=== PATIENT | female | born 1995 | race Two or more races ===

== ENCOUNTER 2025-04-14 16:40 | Inpatient (IN) | payer OTHER, SELFPAY ==
[2025-04-14] VITALS (15 sets, daily range): BP systolic 112–145; BP diastolic 55–75; PULSE 53–91; RESP 16; TEMP 36.7–36.8; BMI 36.8
[2025-04-14 17:35] LABS: Basophils # (Auto) 0.0 Thou/mm3 (0.0-0.2); Basophils % (Auto) 0 % (0-2.5); Eosinophils # (Auto) 0.1 Thou/mm3 (0.0-0.5); Eosinophils % (Auto) 1 % (0-10); Hematocrit 39.5 % (36.0-46.0); Hemoglobin 13.3 g/dL (12.0-16.0); Immature Granulocytes Auto 0.03 Thou/mm3 (0.00-0.00); Lymphocytes # (Auto) 1.9 Thou/mm3 (1.0-4.8); Lymphocytes % (Auto) 20 % (10-50); Mean Corpuscular HGB Conc 33.7 g/dl (31.0-37.0); Mean Corpuscular Hemoglobin 29.9 pg (25.0-35.0); Mean Corpuscular Volume 89 fL (80-100); Monocytes # (Auto) 0.5 Thou/mm3 (0.0-0.8); Monocytes % (Auto) 5 % (0-12); Neutrophils # (Auto) 7.0 Thou/mm3 (1.8-7.7); Neutrophils % (Auto) 74 % (37-80); Nucleated Red Blood Cell # 0.00 Thou/mm3 (0.00-0.00); Nucleated Red Blood Cell % 0 /100 WBC (0); Platelet Count 188 Thou/mm3 (140-440); RDW Standard Deviation 42.5 fL (36.4-46.3); Red Blood Count 4.45 Miln/mm3 (4.00-5.20); White Blood Count 9.5 Thou/mm3 (3.6-11.0)
[2025-04-14 18:08] LABS: Syphilis Nonreactive (Nonreactive)
[2025-04-14 18:31] LABS: Amphetamine/Metham Scrn,Ur OB Negative (Negative); Benzoylecgonine Screen, Ur OB Negative (Negative); Opiate Screen,Urine OB Negative (Negative); THC Screen,Urine OB Negative (Negative)
--- NOTE | 2025-04-14 18:33 | PD.LDHP ---
Documentation for date of: 04/14/25 OB Labor/Induct. HPI History of Present Illness : 3 Para: 2 Term pregnancies: 0 pregnancies: 0 Living children: 2 History of Abortions: Spontaneous and Elective: 0 BURKE: 04/14/25 Gestational Age (weeks): 40 Gestational Age (days): 0 History of present illness: H and P dictated in Nuance # [id number] Labs Labs: Positive: Rubella Titre and Group Beta Strep, Negative: RPR, Hepatitis B, HIV, Chlamydia and Gonorrhea and Unknown: Herpes Type 1, Herpes Type 2 and Covid-19 Meds Home Medications and Allergies Home Medications ?Medication ?Instructions ?Recorded ?Confirmed ?Type vitamins-iron fumarate 27 1 tab PO QDAY 09/27/19 04/14/25 History mg iron-folic acid 0.8 mg tablet ( Vitamin) dextromethorphan HBr 30 mg/5 mL 30 mg PO PRN PRN Cough 07/21/22 04/14/25 History oral liquid Allergies Allergy/AdvReac Type Severity Reaction Status Date / Time No Known Allergies Allergy Verified 04/14/25 18:24 OB Exam Physical Exam Vital signs: Temp Pulse BP 98.3 F 65 128/75 04/14/25 17:36 04/14/25 18:03 04/14/25 18:03 OB Results Labs 04/14/25 17:20 Labs: Short CBC 04/14/25 Range/Units 17:20 WBC 9.5 (3.6-11.0) Thou/mm3 Hgb 13.3 (12.0-16.0) g/dL Hct 39.5 (36.0-46.0) % Plt Count 188 (140-440) Thou/mm3
[2025-04-14] MEDS: RINGERS LACTATED 1000 ML 1,000 ML 100 ML IV (20:20)
[2025-04-15] VITALS (97 sets, daily range): BP systolic 94–143; BP diastolic 56–94; PULSE 53–81; RESP 14–20; TEMP 36.6–36.8; O2SAT 97–100
[2025-04-15] MEDS: RINGERS LACTATED 1000 ML 1,000 ML 100 ML IV ×4 (02:43→22:24)
--- NOTE | 2025-04-15 06:21 | PD.LDPN ---
Documentation for date of: 04/15/25 OB Labor Progress Note Pelvic Exam Dilation (cm): 2 Effacement (%): 50 station: -3 Amniotic membrane status: Intact Contractions Monitor mode: External Contraction frequency: 5 Contraction intensity: Mild Status status: Category l Assessment and Plan Comments: Cytotec cervical ripening on going Blood sugar controlled
[2025-04-15] MEDS: OXYTOCIN in NS 30 units 30 UNIT/500 ML BAG IV (15:59)
[2025-04-15] MEDS: Ampicillin Inj 2,000 MG in SODIUM CHLORIDE 0.9% (POP) 100 ML 200 MG IV (16:16)
[2025-04-15] MEDS: Ampicillin Inj 1,000 MG in SODIUM CHLORIDE 0.9% (Popper) 50 ML 50 MG IV (20:23)
[2025-04-16] VITALS (30 sets, daily range): BP systolic 77–144; BP diastolic 55–94; PULSE 47–81; RESP 15–22; TEMP 36.7–37.5; O2SAT 96–99
[2025-04-16] MEDS: Ampicillin Inj 1,000 MG in SODIUM CHLORIDE 0.9% (Popper) 50 ML 50 MG IV ×2 (00:22→05:41)
[2025-04-16] MEDS: RINGERS LACTATED 1000 ML 1,000 ML 100 ML IV (07:24)
--- NOTE | 2025-04-16 07:53 | ESHP_ITS ---
RE: WILFRID SEBASTIAN : 1995 DATE OF ADMISSION: 04/14/2025 HISTORY OF PRESENT ILLNESS: This is a 29-year-old 3 para 2-0-0-2 with due date of 04/14/2025 with intrauterine at 40 weeks and 0 days, who presents for induction of labor for diabetes at term. The patient has been on ADA diet since she was diagnosed with gestational diabetes on 01/13/2025. She has been diet controlled throughout her . Her recent ultrasound on 03/29/2025 showed estimated weight 7 pounds 3 ounces with growth at the 58th percentile. The patient reports normal movement. She denies any leaking or bleeding. She reports occasional contractions. She has a history of a prior macrosomic delivery at 9 pounds 6 ounces. She is a group B strep vaginal and rectal carrier. MEDICATION: multivitamin 1 p.o. daily. SOCIAL HISTORY: She denies any alcohol or drug use or smoking. She is . PAST MEDICAL HISTORY: Gestational diabetes mellitus, class A1. FAMILY HISTORY: Denies. OBSTETRIC HISTORY: 2019, 40-week normal vaginal delivery, 9 pound 6 ounce male, no complications. 2021, 39-week normal vaginal delivery, 8 pound female, no complications. ALLERGIES: NO KNOWN DRUG ALLERGIES. REVIEW OF SYSTEMS: She denies any chest pain, palpitations, cough, fever, shortness of breath or lower extremity pain. She denies any headache, change in vision or right upper quadrant pain. PHYSICAL EXAMINATION: VITAL SIGNS: Blood pressure is 112/79, heart rate 88, respirations 18, temperature is 98.6, and weight 210 pounds. HEENT: Oropharynx and sclerae are clear. LUNGS: Clear to auscultation bilaterally. HEART: Regular rate and rhythm. ABDOMEN: Gravid term size consistent with estimated weight of 8 pounds. PELVIC: Per RN notes, 2 cm, 40%, -2 vertex intact. EXTREMITIES: Nontender. SKIN: No gross rashes or lesions. NEUROLOGIC: No focal deficit. ASSESSMENT AND PLAN: Intrauterine at 40 weeks and 0 days, gestational diabetes mellitus, class A1, induction of labor, anticipated spontaneous vaginal delivery. Informed consent was obtained. The patient was made aware of the risk of operative vaginal delivery and delivery and agrees with these modes of delivery if indicated. DT: 18:32:24 TT: 19:19:00 Ref: [id number] - TID: [id number]
--- NOTE | 2025-04-16 08:34 | PD.LDPN ---
Documentation for date of: 04/16/25 OB Labor Progress Note Pain Control Comments: Epidural Pelvic Exam Dilation (cm): 3 Effacement (%): 50 station: -3 Amniotic membrane status: Intact Contractions Monitor mode: Palpation Contraction frequency: 1-7 Contraction pattern: Tetanic Contraction intensity: Mild Status status: Category ll Comments: Prolonged episodes of minimal variability but accelerates with tactile stimulation and mild variability at this time. Assessment and Plan Comments: Unable to rupture membranes due to high station and head not well applied to cervix Patient declines further trial of induction of labor Elects delivery Plan delivery Informed consent was obtained the patient made aware the risk complication alternatives and benefits of the proposed procedure and she agrees
[2025-04-16] MEDS: FAMOTIDINE INJ 10 MG/ML VIAL 2 ML 20 MG IV (08:36)
[2025-04-16] MEDS: METOCLOPRAMIDE INJ 5 MG/ML VIAL 2 ML 10 MG IVP (08:36)
[2025-04-16] MEDS: ceFAZolin/D5W 2 GM IV 2 GM/100 ML BAG IV (08:37)
--- NOTE | 2025-04-16 08:38 | ESOP_ITS ---
Operative Note - PATIENT ADMITTING CLERK Procedure Date of procedure: 04/16/25 Procedure Performed: Primary low-transverse section Via Pfannenstiel skin incision Indication: Induction of labor at 40 weeks and 2 days Failed induction Gestational diabetes mellitus class A1 Pre-Op diagnosis: Induction of labor at 40 weeks and 2 days Failed induction Gestational diabetes mellitus class A1 Post-Op diagnosis: Induction of labor at 40 weeks and 2 days Failed induction Gestational diabetes mellitus class A1 Endometriosis Stage II Anesthesia type: Spinal (Failed Epidural) Procedure description: After proper informed consent was obtained and the patient was made aware of the risks, complications, alternatives and benefits of the proposed procedure she was taken to the operating room where she was evaluated for the adequateness of epidural anesthesia. She subsequently underwent induction of spinal anesthesia. She was prepped and draped in the usual sterile fashion. A timeout was performed.? A Pfannenstiel skin incision was made with the scalpel and carried through to the underlying layer of fascia with the Bovie. The fascia was nicked in the midline incision and the incision was extended bilaterally with the Bovie. The inferior aspect of the fascial incision was grasped with Terry clamps elevated and the underlying rectus muscle dissected off with the Bovie. The superior aspect the fascial incision was grasped with Terry clamps elevated and the underlying rectus muscle dissected off with the Bovie. The rectus muscles were in the midline. The peritoneum was grasped between 2 Valverde clamps and entered sharply with the Metzenbaum scissors. The peritoneum was extended superiorly and inferiorly with good visualization of the bladder. The vesicouterine peritoneum was incised transversely and the bladder flap created digitally. A Rubén blade was inserted. A low transverse incision was made in the uterus with a scapel and the incision was extended digitally. The infant's head delivered and the mouth and nose were suctioned with the bulb suction. The shoulder and body delivered atraumatically. The cord was clamped after 30 second delayed cord clamping and the cord was cut.? The male was handed off to the waiting Pediatric staff, cord blood was collected for lab testing. The placenta was removed complete and intact. The uterus was exteriorized and cleared of all clots and debris. The uterine incision was closed with #1-0 chromic catgut suture in a running interlocking fashion. A second layer of the same suture was used to imbricate the first layer and obtain excellent hemostasis. The vesicouterine peritoneum was closed with 2-0 chromic catgut suture in a running fashion. The firm uterus was returned to the abdomen. The gutters were cleared of all clots and debris. The peritoneum was closed with 0 chromic catgut suture in running fashion. The rectus muscle was closed with 0 chromic catgut suture. The fascia was closed with 0 Vicryl beginning at each angle and ending in the center in a running fashion. The subcutaneous tissue was irrigated with warmed normal saline solution and found to be hemostatic. The subcutaneous tissue was closed with 2-0 chromic catgut suture in a running fashion. The skin was closed with 4-0 Monocryl. A Dermabond Prineo dressing was applied and a sterile pressure dressing was applied.? She tolerated the procedure well. Counts were correct. I discussed with the patient the nature of her condition, intraoperative findings and expectation for recovery all? questions answered. Specimen: none Estimated blood loss (ml): 600 Findings: Viable Male Infant APGARS 8 and 9. Meconium stained amniotic fluid. Weight 3940g Occiput Posterior Cephalic. Placenta removed complete and intact Tight nuchal cord Endometriotic implants on both ovaries and uterosacral ligaments Complications: none Surgical staff Geovany MARADIAGAA Diagnosis Discharge Diagnosis (1) delivery delivered: Status: Acute (2) Failed induction of labor: Status: Acute (3) Endometriosis: Status: Acute Problem List Completed Was Problem List Reviewed/Reconciled?: Yes (2) Failed induction of labor Qualifiers: Failed induction of labor type: medical Qualified Code(s): O61.0 - Failed medical induction of labor
--- NOTE | 2025-04-16 09:43 | PD.LDDS ---
DS: Providers Provider Date of admission: 04/14/25 16:40 Primary care physician: Physician No Primary/Family Admitting Provider: Jeremy Arias MD Attending Provider on Admission: Jeremy Arias MD Attending Provider on DC: Jeremy Arias MD Discharging Provider: Jeremy Arias MD DS: Diagnosis Problem List Completed Was Problem List Reviewed/Reconciled?: Yes Summary/Hosp Course Brief History: H and P dictated in Nuance # [id number] Peripartum Data Delivery Method: Low Transverse Episiotomy Description: None [place] 1: Gender: Male Disposition of : home Time Spent with Patient Time attestation: Total time spent providing and/or coordinating discharge services: Exam Vital Signs Temp Pulse Resp BP Pulse Ox O2 Del Method 98.3 F 57 L 18 130/71 98 Room Air 04/16/25 00:20 04/16/25 08:38 04/16/25 00:20 04/16/25 08:38 04/16/25 00:20 04/15/25 15:21 Discharge Plan Plan Patient Disposition: HOME (Self Care) Patient condition on transfer: Stable Prescriptions/Referrals Prescriptions/Med Rec: New hydrocodone-acetaminophen 5-325 mg tablet 1 tab PO Q6H MDD 4 PRN (Reason: pain) Qty: 20 0RF ibuprofen 600 mg tablet 600 mg PO Q6H PRN (Reason: pain) Qty: 30 0RF No Action Vitamin 27 mg iron- 0.8 mg Tablet 1 tab PO QDAY Referrals: No Primary/Family,Physician [Primary Care Provider] - Patient/Caregiver Discharge Instructions Discharge Activity: activity as tolerated Other Discharge Activity Instructions:: Follow up office 1 week. Print Language: Croatian Stand Alone Forms: Kelly Award Info., Patient Portal Info Letter Planned Discharge Date 04/18/25
[2025-04-16] MEDS: OXYTOCIN in NS 20 units 20 UNIT/1,000 ML BAG 125 UNIT IV ×2 (10:10→18:18)
[2025-04-16] MEDS: ONDANSETRON INJ 2 MG/ML INJ 2 ML 4 MG IVP (13:02)
[2025-04-16] MEDS: KETOROLAC INJ 30 MG/ML VIAL IVP ×2 (13:10→20:24)
[2025-04-16 16:29] LABS: Basophils # (Auto) 0.0 Thou/mm3 (0.0-0.2); Basophils % (Auto) 0 % (0-2.5); Eosinophils # (Auto) 0.0 Thou/mm3 (0.0-0.5); Eosinophils % (Auto) 0 % (0-10); Hematocrit 34.1 % (36.0-46.0); Hemoglobin 11.4 g/dL (12.0-16.0); Immature Granulocytes Auto 0.03 Thou/mm3 (0.00-0.00); Lymphocytes # (Auto) 1.1 Thou/mm3 (1.0-4.8); Lymphocytes % (Auto) 10 % (10-50); Mean Corpuscular HGB Conc 33.4 g/dl (31.0-37.0); Mean Corpuscular Hemoglobin 30.2 pg (25.0-35.0); Mean Corpuscular Volume 90 fL (80-100); Monocytes # (Auto) 0.7 Thou/mm3 (0.0-0.8); Monocytes % (Auto) 6 % (0-12); Neutrophils # (Auto) 9.7 Thou/mm3 (1.8-7.7); Neutrophils % (Auto) 84 % (37-80); Nucleated Red Blood Cell # 0.00 Thou/mm3 (0.00-0.00); Nucleated Red Blood Cell % 0 /100 WBC (0); Platelet Count 146 Thou/mm3 (140-440); RDW Standard Deviation 42.6 fL (36.4-46.3); Red Blood Count 3.78 Miln/mm3 (4.00-5.20); White Blood Count 11.5 Thou/mm3 (3.6-11.0)
--- NOTE | 2025-04-16 18:04 | PD.LDDELS ---
Data ([place]) Data Hx Section: No : 3 Term: 0 : 0 Livin Abortions: Spontaneous & Theraputic: 0 Delivery Data ([place]) Labor Data Initiation of labor: Induction Induction/Augmentation Agent: Cervidil and Pitocin ROM date: 04/16/25 ROM time: 09:17 Amniotic membrane rupture type: Artificial Amniotic fluid description: Light Meconium Delivery Data EDC: 04/14/25 EDC calculated by:: LMP/early US confirmation [place] delivery date: 04/16/25 [place] delivery time: 09:18 Gestational age (weeks): 40 Gestational age (days): 2 Placenta delivery date: 04/16/25 Placenta delivery time: 09:18 Delivered by: Hugo DELGADO Delivery nurse: Ken Crumorn nurse: Reagan Borja RN General Assistant at delivery: No Support person(s) at delivery: FOB Other staff at delivery: trent, alessia denton Nathan CRNA Delivery Method Delivery method: Low Transverse Presentation: Vertex position: OP Anesthesia Type Anesthesia Type: Spinal and Epidural Anesthesia type: Spinal (Failed Epidural) Placenta Placenta delivery description: Manual Removal Episiotomy Episiotomy description: None EBL Estimated blood loss (ml): 600 Umbilical Cord cord description: 3 Vessels Complications Complications: None Data ([place]) [place] Data order: 1 [place]'s gender: Male Identification band number: [id number] weight (gms): 8 lb 10.979 oz Weight (pounds): 8 lbs and 11.0 ozs [place] length: 21.5 in 1 minute: 8 5 minutes: 9
[2025-04-17 00:15] VITALS: BP 107/73; PULSE 69; RESP 16; TEMP 37; O2SAT 96
[2025-04-17 04:30] VITALS: BP 156/80; PULSE 69; RESP 16; TEMP 37; O2SAT 96
[2025-04-17] MEDS: HYDROcodone/APAP 5/325 TABLET 1 TAB PO (04:37)
--- NOTE | 2025-04-17 07:06 | ESPR_ITS ---
RE: WILFRID SEBASTIAN : 1995 DATE OF SERVICE: 04/17/2025 SUBJECTIVE: Postop day #1, patient denies any problems or complaints. She is voiding. She is ambulating. She is tolerating diet. She is passing flatus. She denies any excessive vaginal bleeding. She denies any dizziness or lightheadedness. She denies any chest pain, palpitations, shortness of breath or lower extremity pain. OBJECTIVE: Vital Signs: Blood pressure 156/80, heart rate 69, respirations 16, temperature is 98.6, and pulse oximetry is 96% on room air. Lungs: Clear to auscultation bilaterally. Heart: Regular rate and rhythm. Abdomen: Fundus is firm. Dressing dry and intact. Extremities: Nontender. LABORATORY DATA: Hemoglobin predelivery is 13.3, postdelivery is 11.4. ASSESSMENT: Postoperative day #1, status post delivery. PLAN: Remove dressing, DC IVs, encourage ambulation, support, possible discharge home tomorrow. DT: 06:44:29 TT: 07:03:00 Ref: [id number] - TID: [id number]
[2025-04-17 07:50] VITALS: BP 131/88; PULSE 79; RESP 19; TEMP 37; O2SAT 99
[2025-04-17] MEDS: HYDROcodone/APAP 5/325 TABLET 2 TAB PO ×2 (09:13→17:01)
[2025-04-17] MEDS: ENOXAPARIN SOD INJ 40 MG/0.4 ML SYRINGE SC (09:13)
[2025-04-17] MEDS: DOCUSATE SOD 100 MG CAPSULE PO (09:13)
[2025-04-17] MEDS: SIMETHICONE 80 MG CHEW PO ×2 (09:14→13:18)
[2025-04-17 11:24] VITALS: BP 109/72; PULSE 65; RESP 17; TEMP 36.7; O2SAT 98
--- NOTE | 2025-04-17 14:52 | PC.CC ---
0900-ASW Abrahan Lewis and [employer] Executive Jeniffer Thurmant completed a biopsychosocial assessment with the pt at bedside. ASW informed pt of the reason for the referral as it was reported the pt was late to care. ASW introduced self, role, and reason for assessment. ASW disclosed limits of confidentiality as well. Patient appeared alert and oriented to self, place, and situation. Patient was pleasant; her mood appeared happy; his behavior calm and pleasant. Patient?s thought process was linear and organized. No signs of delusions, paranoid or AVH. Pt stated the reason why she was late to care was due to scheduling by the OB providers office. Pt reported she was not able to get in to see her provider until 3 months of . Pt reported that she was taking her vitamins, refraining from alcohol or medications. Pt reported she delivered at 40 weeks and 2 days. Pts infant weighs 8 pounds, 10.979 ounces and 21.5 inches. Pt stated her OB was Dr. Arias, Peds will be Dr. Moreno at [facility] and her pharmacy of choice is [facility]. Pt reported she has all she needs at home for the and is ready for the infant to go home. Pt reports no medical concerns for the infant. Pt states the infant was not on lights and passed the hearing test. Pt reports she is formula feeding and declined the consult services. Pt denies CWS/CPS history and denies drug and alcohol use. Pt states the FOB Lang Rubio [birth year] will be her transportation home when she and the infant are ready for d/c. At this time, there are no SS concerns for the pt and infant.
[2025-04-17 20:00] VITALS: BP 129/76; PULSE 78; RESP 18; TEMP 36.9; O2SAT 96
[2025-04-17] MEDS: Milk Of Magnesia Susp 30 ML UDC PO (20:41)
[2025-04-18] MEDS: SIMETHICONE 80 MG CHEW PO (00:27)
[2025-04-18 04:03] VITALS: BP 127/76
--- NOTE | 2025-04-18 06:33 | ESPR_ITS ---
RE: WILFRID SEBASTIAN : 1995 DATE OF SERVICE: 04/18/2025 SUBJECTIVE: Postop day #2, patient denies any problems or complaints. She is voiding. She is ambulating. She is tolerating diet. She is passing flatus. She denies any excessive vaginal bleeding. She denies any dizziness or lightheadedness. She denies any chest pain, palpitations, shortness of breath or lower extremity pain. OBJECTIVE: Vital Signs: Blood pressure 127/76, heart rate 88, respirations 18, and temperature is 98.6. Lungs: Clear to auscultation bilaterally. Heart: Regular rate and rhythm. Abdomen: Incision clear and intact. Nondistended. Extremities: Nontender. ASSESSMENT: Postoperative day #2, status post delivery. PLAN: Discharge home. Discharge instructions given. Follow up in the office in 1 week. DT: 06:12:57 TT: 06:30:00 Ref: [id number] - TID: [id number]
[2025-04-18 07:10] VITALS: BP 117/73; PULSE 64; RESP 20; TEMP 36.9; O2SAT 97
[2025-04-18] MEDS: DOCUSATE SOD 100 MG CAPSULE PO (07:40)
[2025-04-18] MEDS: IBUPROFEN TAB 400 MG TABLET 800 MG PO ×2 (07:40→16:04)
[2025-04-18] MEDS: ENOXAPARIN SOD INJ 40 MG/0.4 ML SYRINGE SC (09:24)
== END 2025-04-18 16:10 | disposition home or self-care (01) | DRG 788 ==
LOC: S4SX 04-16 08:37 → S4NX 04-16 09:48
PROVIDERS: Admitting Provider Specialist; Visit Provider Specialist
PROC: 10D00Z1 Extraction of Products of Conception, Low, Open Approach (ICD-10-PCS; CPT 59514; principal; 2025-04-16 08:45)
DX: O48.0 Post-term pregnancy (principal); Z3A.40 40 weeks gestation of pregnancy; O24.420 Gestational diabetes mellitus in childbirth, diet controlled; Z37.0 Single live birth; O77.0 Labor and delivery complicated by meconium in amniotic fluid; O69.1XX0 Labor and delivery complicated by cord around neck, with compression, not applicable or unspecified; O61.0 Failed medical induction of labor; N80.9 Endometriosis, unspecified
CPT/HCPCS: 36415; 59409; 80307; 85025; 86780; 86850; 86900; 86901; 94762; A4217; A4314; A4649; J0290; J0689; J1650; J1885; J2250; J2274; J2371; J2405; J2590; J2704; J2765; J2795; J3010; J3490; J7050; J7120; A9270; J2270